=== PATIENT | female | born 1980 | race American Indian/Alaskan Native ===

== ENCOUNTER 2017-02-13 18:36 | Emergency (ER) | payer OTHER ==
[~2017-02-13] VITALS: Ht 154.9 cm; Wt 88.5 kg
[2017-02-13 20:04] LABS: HIV-1 P24 AG Nonreactive (Nonreactive)
[2017-02-13 20:12] VITALS: BP 125/88
[2017-02-14 06:10] LABS: HCV AB-EMPLOYEE EXPOSURE <0.1 (0.0-0.9)
[2017-02-15 07:13] LABS: HBsAG-EMPLOYEE CONFIRMATION Positive (()); HBsAG-EMPLOYEE EXPOSURE Confirm. indicated (Negative)
== END 2017-02-13 20:12 | disposition home or self-care (01) ==
LOC: ER 18:36
PROVIDERS: Physician Assistant
DX: S69.81XA Other specified injuries of right wrist, hand and finger(s), initial encounter (principal); W46.0XXA Contact with hypodermic needle, initial encounter; Y93.89 Activity, other specified; Y92.89 Other specified places as the place of occurrence of the external cause; Y99.0 Civilian activity done for income or pay